=== PATIENT | male | born 1975 | race Two or more races ===

== ENCOUNTER 2017-07-23 11:58 | Emergency (ER) | payer SELFPAY ==
[~2017-07-23] VITALS: Ht 162.6 cm; Wt 81.6 kg
[2017-07-23 12:08] VITALS: BP 146/100
[2017-07-23] MEDS ORDERED: IBUPROFEN 600 MG TAB PO ONE (12:15)
== END 2017-07-23 15:05 | disposition left against medical advice (07) ==
LOC: ER 11:58
DX: M79.632 Pain in left forearm (principal); Z53.21 Procedure and treatment not carried out due to patient leaving prior to being seen by health care provider; W19.XXXA Unspecified fall, initial encounter; Y93.89 Activity, other specified; Y99.8 Other external cause status; Y92.89 Other specified places as the place of occurrence of the external cause
CPT/HCPCS: 73090

== ENCOUNTER 2017-07-25 11:30 | Emergency (ER) | payer SELFPAY ==
[~2017-07-25] VITALS: Ht 162.6 cm; Wt 81.6 kg
[2017-07-25 12:54] VITALS: BP 135/88
[2017-07-25] MEDS ORDERED: KETOROLAC TROMETH 60MG/2ML VIAL IM ONE (13:15)
[2017-07-25] MEDS ORDERED: HYDROcodone-ACET 10/325MG TAB PO ONE (13:15)
== END 2017-07-25 13:30 | disposition home or self-care (01) ==
LOC: ER 11:30
DX: S52.202A Unspecified fracture of shaft of left ulna, initial encounter for closed fracture (principal); W01.0XXA Fall on same level from slipping, tripping and stumbling without subsequent striking against object, initial encounter; Y93.89 Activity, other specified; Y99.8 Other external cause status; Y92.89 Other specified places as the place of occurrence of the external cause
CPT/HCPCS: 29125; 73090; 73130; 96372; 99284; J1885